=== PATIENT | male | born 1965 | race Caucasian/White ===

== ENCOUNTER 2018-01-19 23:33 | Emergency (ER) | payer MEDICAID | END 2018-01-20 01:18 | disposition left against medical advice (07) | LOC: ER 23:33 | DX: Z76.0 Encounter for issue of repeat prescription (principal); Z53.21 Procedure and treatment not carried out due to patient leaving prior to being seen by health care provider ==

== ENCOUNTER 2018-01-25 05:41 | Emergency (ER) | payer MEDICAID, MEDICARE ==
[~2018-01-25] VITALS: Ht 167.6 cm; Wt 87.2 kg
[2018-01-25] MEDS ORDERED: LISI-604 MT (06:05)
[2018-01-25 06:51] VITALS: BP 138/90
== END 2018-01-25 06:53 | disposition home or self-care (01) ==
LOC: ER 05:44
DX: I10 Essential (primary) hypertension (principal); F17.200 Nicotine dependence, unspecified, uncomplicated; F12.10 Cannabis abuse, uncomplicated; Z90.49 Acquired absence of other specified parts of digestive tract; Z76.0 Encounter for issue of repeat prescription
CPT/HCPCS: 99283

== ENCOUNTER 2018-01-27 22:45 | Emergency (ER) | payer MEDICARE ==
[~2018-01-27] VITALS: Ht 177.8 cm; Wt 86.0 kg
[~2018-01-27 22:45] MED LIST: LISI-604 MT
[2018-01-27 23:24] VITALS: BP 148/88
== END 2018-01-28 00:50 | disposition left against medical advice (07) ==
LOC: ER 22:45
DX: M79.641 Pain in right hand (principal); Z53.21 Procedure and treatment not carried out due to patient leaving prior to being seen by health care provider

== ENCOUNTER 2018-03-18 03:39 | Emergency (ER) | payer MEDICARE ==
[~2018-03-18] VITALS: Ht 177.8 cm; Wt 86.0 kg
[2018-03-18] MEDS ORDERED: PREDNISONE 20MG TABLET PO STA (04:35)
[2018-03-18] MEDS ORDERED: IPRATROPIUM BROMIDE (0.02%) 0.5MG/2.5ML NEB HHN STA ×2 (04:35→05:26)
[2018-03-18] MEDS ORDERED: ALBUTEROL (0.083%) 2.5MG/3ML NEB HHN STA ×2 (04:35→05:26)
[2018-03-18 05:24] LABS: BASOPHILS % 2.7 % (0.0-2.0); EOSINOPHILS % 11.1 % (0.0-5.0); HEMATOCRIT. 45.1 % (42.0-52.0); HEMOGLOBIN. 14.8 g/dL (14.0-18.0); MEAN CORPUSCULAR HEMOGLOBIN 26.4 pg (28.0-32.0); MEAN CORPUSCULAR VOLUME 80.1 fL (80.0-94.0); MEAN PLATELET VOLUME 11.1 fl (7.4-10.4); MONOCYTES % 8.1 % (2.0-8.0); NEUTROPHILS % 44.1 % (40.0-76.0); PLATELET 120 x1000/uL (130-400); RED BLOOD CELL COUNT 5.63 mill/uL (4.7-6.1); RED CELL DISTRIBUTION WIDTH 13.9 % (11.6-14.6)
[2018-03-18 05:32] LABS: CHLORIDE 106 mEq/L (98-107)
[2018-03-18 06:05] VITALS: BP 177/95
== END 2018-03-18 06:41 | disposition home or self-care (01) ==
LOC: ER 03:39
DX: J40 Bronchitis, not specified as acute or chronic (principal); R06.2 Wheezing; I10 Essential (primary) hypertension; Z90.49 Acquired absence of other specified parts of digestive tract
CPT/HCPCS: 36415; 71045; 80053; 83880; 85025; 94640; 99285; J7512; J7611

== ENCOUNTER 2018-04-30 00:54 | Emergency (ER) | payer MEDICARE ==
[~2018-04-30] VITALS: Ht 177.8 cm; Wt 86.0 kg
[2018-04-30 01:12] VITALS: BP 176/109
== END 2018-04-30 03:47 | disposition left against medical advice (07) ==
LOC: ER 01:39
DX: I10 Essential (primary) hypertension (principal); Z90.49 Acquired absence of other specified parts of digestive tract; Z53.21 Procedure and treatment not carried out due to patient leaving prior to being seen by health care provider

== ENCOUNTER 2018-06-07 17:51 | Emergency (ER) | payer MEDICARE ==
[~2018-06-07] VITALS: Ht 177.8 cm; Wt 86.0 kg
[2018-06-07 18:00] VITALS: BP 176/114
[2018-06-07] MEDS ORDERED: LISINOPRIL 20MG TABLET PO ONE (18:15)
== END 2018-06-07 18:32 | disposition home or self-care (01) ==
LOC: ER 17:51
DX: I10 Essential (primary) hypertension (principal); F12.10 Cannabis abuse, uncomplicated; Z90.49 Acquired absence of other specified parts of digestive tract
CPT/HCPCS: 99283